=== PATIENT | female | born 1990 | race Caucasian/White ===

== ENCOUNTER 2020-03-25 09:29 | Outpatient (CLI) | payer OTHER, SELFPAY ==
[2020-03-25 09:51] LABS: Hematocrit 33.9 % (37.0-47.0); Mean Corpuscular HGB Conc 32.4 g/dl (32-36); Mean Corpuscular Hemoglobin 30.2 pg (26-34); Mean Corpuscular Volume 93.1 fl (80-100); Mean Platelet Volume 8.8 fl (7.4-10.4); Platelet Count Result 216 k/mm3 (150-375); Red Blood Count 3.64 M/mm3 (4.2-5.4); Red Cell Distribution Width 13.2 % (11.5-14.5); White Blood Count 5.4 K/mm3 (4.5-10.0)
[2020-03-26 07:40] LABS: Rapid Plasma Reagin Non-Reactive (NonReactive)
== END 2020-03-25 09:30 | disposition home or self-care (01) ==
PROVIDERS: Visit Provider Obstetrics & Gynecology
DX: Z01.812 Encounter for preprocedural laboratory examination (principal); Z01.83 Encounter for blood typing
CPT/HCPCS: 36415; 85027; 86592; 86850; 86900; 86901

== ENCOUNTER 2020-03-26 09:56 | Inpatient (IN) | payer OTHER, SELFPAY ==
--- NOTE | 2020-03-25 22:48 | P.HP_ITS ---
H&P: HPI History of Present Illness Date/Time: 03/25/20 22:48 Chief complaint: Repeat Narrative: 29 y/o G P at 39 3/7 weeks gestation here for repeat . Her has been uncomplicated. GBS neg. Good movement. No contractions. Review of Systems Review of Systems: All systems reviewed & are unremarkable except as noted in HPI and below PMFSH Past Medical History Medical History (Updated 03/26/20 @ 11:55 by Joss Dumont MD) History of ectopic Surgical History Surgical History History of delivery History of repair of ACL Family History Family History Grandparent Colon cancer Sibling No problems noted. Daughter No problems noted. Father No problems noted. Social History Social History Smoking status: Never smoker Substance use: never Gender identity (if verbalized by the patient): Female Spiritual care concerns: No Meds Home Medications and Allergies Home Medications Medication Instructions Recorded Confirmed Type PNV cmb#95-ferrous fumarate-FA 1 tablet PO DAILY 03/06/20 03/26/20 History [] Allergies Allergy/AdvReac Type Severity Reaction Status Date / Time No Known Allergies Allergy Verified 03/26/20 10:49 Exam Const: Orientation/consciousness: patient oriented x3 Other: Well- developed, well-nourished female in no acute distress. Neck: Thyroid: thyroid normal Lymphatic: no lymphadenopathy noted (in neck, axilla or inguinal nodes) Resp: Effort & Inspection: normal respiratory effort Auscultation: clear to auscultation bilaterally Cardio: Rate: regular rate Rhythm: regular rhythm Heart sounds: S1 normal heart sound present and S2 normal heart sound present GI: Other: ABD: Soft, nontender, nondistended, gravid. FHR ausculated. : General: Yes no CVA tenderness Other: Cervix is closed, thick. Back/Spine/Pelvis: Back: no CVA tenderness Skin: General skin exam: normal color and no rashes or lesions noted Neuro: General: patient oriented x3 Extrem: Other: Extremities: nontender with no edema Psych: Mental Status: mental status grossly normal Affect: normal affect Assessment and Plan Assessment and plan (1) History of delivery: Code(s): Z98.891 - History of uterine scar from previous surgery Status: Acute Assessment and Plan: IUP at 39 3/7 weeks with prior , desiring repeat. She understands risks of surgery to include risks of anesthesia, risks of pain, infection, bleeding, blood products, thromboembolic phenomena and damage to adjacent structures such as bowel, bladder, ureters, blood vessels and nerves. She understands all these risks and elects to proceed with repeat LTCS.
[2020-03-26] VITALS (77 sets, daily range): BP systolic 68–121; BP diastolic 45–87; PULSE 51–103; RESP 13–18; TEMP 36–36.7; O2SAT 87–100; BMI 29.3
[2020-03-26] MEDS: LACTATED RINGERS 1,000 ML 125 ML IV CONT (10:36)
--- NOTE | 2020-03-26 10:46 | LDADM ---
This patient, Marla Welch, was admitted to Labor/Delivery/Recovery 120 on 03/26/20 at 09:56. Plans for surgery/ and pain management were discussed with patient. Patient/family oriented to hospital policies and general routines including ID bracelet, bed and alarms, visiting hours, pain management, procedures, bathroom and other care routines, personal items, smoking policy, room service/diet and guest tray routines, infant security routines, and visiting hours. Patient/Family are encouraged to report perceived risks to care and to ask questions if they do not understand what they are told or what they should do.
--- NOTE | 2020-03-26 11:41 | WPDANESEPPF ---
Anes - Initial Pre Proc Eval Procedure: Operation Date: 03/26/20 12:00 Proposed Procedures p Repeat Section - Joss Dumont MD 29 y/o G P at 39 weeks gestation here for repeat . Her has been uncomplicated. Date/Time: 03/26/20 11:41 Surgeon: Joss Dumont MD Pre Op Diagnosis: Repeat Patient Data Age: 29 Gender: F Height: 1.73 m Weight: 87.6 kg Last Vital Signs Temp 36.7 C 03/26/20 10:39 Pulse 79 03/26/20 10:33 Resp 16 03/26/20 10:39 BP 121/76 03/26/20 10:33 Allergies Allergy/AdvReac Type Severity Reaction Status Date / Time No Known Allergies Allergy Verified 03/26/20 10:49 Home Medications Medication Instructions Recorded Confirmed Type PNV cmb#95-ferrous fumarate-FA 1 tablet PO DAILY 03/06/20 03/26/20 History [] Patient hx anesthesia problems: post op nausea/vomiting Family hx anesthesia problems: none PMFSH Family History Family History (Updated 03/26/20 @ 11:05 by Wendy Guillaume RN) Grandparent Colon cancer Sibling No problems noted. Daughter No problems noted. Father No problems noted. Social History Social History Smoking status: Never smoker Substance use: never Gender identity (if verbalized by the patient): Female Spiritual care concerns: No Anes - Eval Final PreProcedure Day of Procedure 03/26/20 11:41 Patient weight: overweight Heart: regular rate and rhythm Lungs: clear to auscultation and normal air movement Airway: Mallampati scale class II Neurological: alert and oriented Last oral intake: >/= 8 hours ASA classification: II Emergent: no Anesthetic plan: proceed Anesthesia type and monitoring: regional spinal Informed Consent: The patient's anesthetic plan and its attendant risks and benefits were discussed with the patient/family/POA. Questions were solicited and answers provided to the satisfaction of the patient/family/POA.
--- NOTE | 2020-03-26 11:56 | WPDHPUPDATE1 ---
History and Physical Update Update Date/Time: 03/26/20 11:56 History and Physical has been reviewed, including an updated exam of the patient. There are NO changes in the patient's condition. Risks, benefits, and alternatives have been discussed and questions answered. Patient agrees to proceed with procedure.
[2020-03-26] MEDS: LACTATED RINGERS 1,000 ML 999 ML IV CONT (12:00)
[2020-03-26] MEDS: ceFAZolin 2 GM/D5W 50 ML 2 GM/50 ML BAG IVPB (12:05)
--- NOTE | 2020-03-26 12:58 | P.PCNOB_ITS ---
OB - Delivery Note Procedure Delivery date: 03/26/20 Procedure: Procedures Operation Date: 03/26/20 12:00 Actual Procedures Side Surgeon p Repeat Section Not Applicable Joss Dumont MD Estimated blood loss (mL): 400 Anesthesia type: Spinal Disposition: PACU Complications: None Narrative: The patient was taken to the operating room where she was prepared and draped in the usual sterile fashion in dorsal supine position with a leftward tilt. She received cefazolin preoperatively. Spinal anesthesia was found to be adequate. A Pfannenstiel skin incision was made along the previous scar line and was carried through to the underlying layer of the fascia. The fascia was incised in the midline and the incision was extended laterally. The fascia was dissected free of the underlying rectus muscles. The rectus muscles were in the midline. The peritoneum was identified, tented up and entered sharply. The peritoneal incision was extended superiorly and inferiorly with good visualization of the bladder. The bladder blade was placed. The v esicouterine peritoneum was identified, tented up and entered sharply. The incision was extended laterally and the bladder flap was developed. The bladder blade was replaced. The uterus was then incised sharply in a transverse fashion along the lower uterine segment. The incision was extended laterally. The infant's head was delivered atraumatically to the sterile field, followed by the body. The nose and mouth were bulb suctioned. After a delay, the cord was clamped and cut. The infant was handed off the field. Cord blood was collected. The placenta was removed manually and was passed off the field. The uterus was exteriorized and cleared of all clots and debris. The uterine incision was reapproximated using 0 Monocryl in a running, locked fashion. Excellent hemostasis resulted as did excellent reapproximation of the normal anatomy. Small paratubal cysts were noted bilaterally. The uterus, tubes and ovaries were unremarkable. The uterus was returned the abdomen. The pelvis was irrigated copiously with warmed normal saline. Rigorous hemostasis was assured. The fascial layer was reapproximated using 0 Vicryl in a running fashion. The skin was closed with a running, subcuticular stitch of 4 0 Vicryl. Dermaflex was applied externally. Sponge, lap, needle and instrument counts were correct. The patient was taken to the recovery room in stable condition. The infant went to the nursery in stable condition. I was present and scrubbed the entire procedure. Baby Date of : 03/26/20 Time of : 12:34 Weeks of gestation at delivery: 39 Infant gender: Male Weight (pounds): 10 Weight (ounces): 10 presentation: vertex Placenta delivery description: Manual Removal and Normal Configuration cord vessel description: 3 Vessels score one minute: 9 score five minutes: 9
--- NOTE | 2020-03-26 13:00 | PM.OBDSVD ---
DS: Admitting Diagnosis Admitting Diagnosis Admitting Diagnosis: IUP at 39 3/7 weeks Prior DS: Discharge Diagnosis Discharge Diagnosis (1) History of delivery: Code(s): Z98.891 - History of uterine scar from previous surgery Status: Acute OB - DS: Summary OB Procedures : None OB Procedures Intrapartum: OB Procedures: : None Peripartum Data Procedures: Procedures Operation Date: 03/26/20 12:00 Actual Procedures Side Surgeon p Repeat Section Not Applicable Joss Dumont MD Discharge Plan Discharge Attending physician on discharge: Joss Dumont Consulting providers: Alex Andersen Discharging Clinician: Joss Dumont Patient Disposition: Home, Self-Care Activity: may shower, may drive after 2 weeks and pelvic rest Diet: regular Wound Care Instructions: follow printed instructions and incision open to air Discharge Instructions: Call or return if temperature above 100.4? F, increased abdominal pain, increased vaginal bleeding or any new problems. Education: Mom and Baby Guide Given to: Mother Follow-Up: Call your delivering provider's office for an appointment to be seen. Mom and baby should come to the [facility] for the follow-up appointment. Appointment Date/Time: March 29, 2020 at 9:00 am What to expect at your follow-up visit: Physical Assessment Call [phone] if you are unable to keep your appointment time. BREAST CARE: * Wear a snug supportive bra. * For engorgement discomfort: Breast Feeding: * Apply warm moist washcloths * Express milk as needed to relieve engorgement * Wear loose clothing * For sore nipples: * Identify correct latch-on * Apply warm moist washcloths before and after nursing * Air dry nipples after nursing * May apply Lansinoh cream to nipples EPISIOTOMY/PERINEAL CARE: * Until bleeding stops, use your uriel bottle after urinating * Change your pad frequently throughout the day * You may take sitz baths several times a day (fill your bathtub with warm water and soak for 20 minutes.) Do NOT bathe in the water * No tub baths until seen by your physician - You may shower ACTIVITY: * Rest as much as possible. * Do not exercise or lift anything heavier than your baby (such as laundry or other children.) * Avoid stairs or driving as much as possible. * Do not put anything into the vagina. No douching, tampons, or sexual activity until seen by physician. NOTIFY PHYSICIAN IF YOU HAVE ANY QUESTIONS OR IF ANY OF THE FOLLOWING SYMPTOMS OCCUR: * If your incision becomes red, swollen, or more painful than what you have experienced in the hospital. * If your vaginal bleeding becomes foul smelling. * If your vaginal bleeding becomes more heavy than a period or if your bleeding changes from pink to bright red. However, you may pass an occasional walnut-sized clot once or twice for the first week . * If you experience a sharp, shooting pain in you calves. * If you discover a hard, reddened area on your breast or if you experience flu-like symptoms. DIET: * Eat regular, well-balanced meals. * Drink plenty of fluids daily. If , drink to thirst. Stand Alone Forms: General Discharge Information Follow-up/Referrals: Joss Dumont MD [Physician] - (4 weeks) Discharge Medications: New hydrocodone-acetaminophen [[place]] 5-325 mg tablet 1 - 2 tablet PO Q6H PRN (Reason: pain) Qty: 30 RF: 0 ibuprofen 600 mg tablet 600 mg PO Q6H PRN (Reason: cramps) Qty: 30 RF: 0 ferrous sulfate 325 mg (65 mg iron) tablet 325 mg PO DAILY Qty: 30 RF: 0 Continued PNV cmb#95-ferrous fumarate-FA [] 28 mg iron- 800 mcg Tablet 1 tablet PO DAILY RF: 0 Date of admission: 03/26/20 09:56 Primary Care Provider: PHYSICIAN,ANTHROPOLOGIST PHYSICAL Admitting Provider: Joss Dumont Discharge Date
[2020-03-26] MEDS: OXYTOCIN 30 UNITS/NS 500 ML 30 UNITS/500 ML BAG 125 UNITS IV CONT (14:04)
[2020-03-26] MEDS: ONDANSETRON INJ 4 MG/2 ML VIAL IV PUSH (14:54)
--- NOTE | 2020-03-26 16:23 | PC.NURSE ---
1528-Patient transferred to post room #282 via stretcher. Support person present. Oriented to unit, room, information board, rooming in, admission packet and security measures. Patient verbalizes understanding.
[2020-03-26] MEDS: diphenhydrAMINE HCl INJ 50 MG/ML VIAL 25 MG IV PUSH (16:50)
[2020-03-26] MEDS: KCL 20 MEQ/D5/0.45% SOD CHL 1,000 ML 125 ML IV CONT (18:20)
[2020-03-26] MEDS: KETOROLAC 30 MG/ML VIAL (*BKC) IV PUSH (20:24)
[2020-03-27] MEDS: IBUPROFEN 600 MG TABLET PO ×4 (03:20→23:40)
[2020-03-27 04:25] VITALS: BP 88/54; PULSE 59; RESP 16; TEMP 36; O2SAT 98
[2020-03-27 05:04] LABS: Basophils Percent Auto 0.1 % (0.2-1.2); Hematocrit 28.9 % (37.0-47.0); Hemoglobin 9.4 g/dL (12.0-15.0); Immature Granulocyte Absolute 0.05 K/mm3 (0.00-0.031); Immature Granulocyte Percent A 0.7 % (0-0.5); Lymphocytes Absolute Auto 1.37 K/mm3 (0.9-3.2); Lymphocytes Percent Auto 17.8 % (18.3-44.2); Mean Corpuscular HGB Conc 32.5 g/dl (32-36); Mean Corpuscular Hemoglobin 29.9 pg (26-34); Mean Platelet Volume 9.5 fl (7.4-10.4); Monocytes Absolute Auto 0.5 K/mm3 (0.1-0.6); Neutrophils Absolute Auto 5.8 K/mm3 (1.3-6.7); Neutrophils Percent Auto 75.4 % (45.5-73.1); Platelet Count Result 199 k/mm3 (150-375); Red Blood Count 3.14 M/mm3 (4.2-5.4); Red Cell Distribution Width 13.1 % (11.5-14.5); White Blood Count 7.7 K/mm3 (4.5-10.0)
[2020-03-27 07:50] VITALS: BP 95/57; PULSE 62; RESP 18; TEMP 37.1; O2SAT 97
--- NOTE | 2020-03-27 08:20 | PC.NURSE ---
Consult with pt., mother states is latching for all feedings. She reports tenderness with feedings and states infant has a tight tongue. Frenulum is noted close to tip of tongue and tongue does heart in at tip. Report to ICP. Mother reports difficulties with latching first child, she pumped and bottle fed for several months.
[2020-03-27] MEDS: MULTIVIT/MIN/PREN/FOL AC/IRON TABLET 1 TAB PO (08:56)
[2020-03-27] MEDS: DOCUSATE SODIUM 100 MG CAPSULE PO ×2 (08:56→16:52)
[2020-03-27] MEDS: POLYSACCHARIDE IRON COMPLEX 150 MG CAPSULE PO ×2 (08:56→16:52)
--- NOTE | 2020-03-27 10:29 | WPDANLDPN2 ---
Anes-Prog Note L&D Date/Time: 03/27/20 10:29 Comfortable throughout: section Neuraxial method: spinal Epidural/Spinal procedure site: clean & non-tender Neuro status: Neuro function grossly intact. Cardiovascular status: normal Respiratory status: normal Airway patency: baseline Mental status: baseline Post-Op hydration status: normal Vital Signs: Last Vital Signs Temp 37.1 C 03/27/20 07:50 Pulse 62 03/27/20 07:50 Resp 18 03/27/20 07:50 BP 95/57 L 03/27/20 07:50 Pulse Ox 97 03/27/20 07:50 I/O: Intake & Output 03/26/20 03/27/20 03/27/20 23:59 07:59 15:59 Intake Total 1100 200 240 Output Total 825 400 Balance 275 -200 240 Post-procedural complaints: nausea moderate, treatment effective and pruritis mild, no treatment Patient feedback: Patient satisfied with anesthetic care.
--- NOTE | 2020-03-27 10:29 | WPDANLDNPN2 ---
Anes-Prog Note L&D-Neuraxial Date/Time: 03/27/20 10:29 Neuraxial medications: intrathecal PF morphine Opiod-related complaints: pruritis mild, no treatment Patient feedback: Patient satisfied with post-operative pain management.
--- NOTE | 2020-03-27 12:30 | PC.NURSE ---
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 Reviewed infant feeding cues, frequencies, duration of feedings, feeding elimination flow sheet, and signs of adequate intake. Demonstrated stimulation techniques to wake infant for feeding. Assisted with to breast. Reviewed positioning/alignment in cross cradle, holding breast in U hold and guided asymmetrical latch on. Discussed rational for each. Infant made several attempts before he was able to latch correctly. does not drop tongue to allow easy deep latch and is pushing nipple out during feeding. Once one infant nursed eagerly with steady draws and frequent swallowing followed with long pausing. During pausing would again push nipple out, he would begin to suckle with a shallow latch. Advised to break latch and not allow infant to suck on just nipple. Reviewed signs of a correct latch, effective nursing and suck swallow ratio. Infant was able to maintain latch without discomfort to mother. is sleepy at breast with long pausing and sleeping. Nipple care reviewed. Suggested to stimulate during entire feeding to keep awake and feeding effectively and to assist with maintaining deep latch. Demonstrated how to adjust latch more deeply while feeding. Mother states she will continue to supplement after all feedings until her milk is in. Suggested mother initiate pumping. Instructed mother to call out for RN assistance if she is unable to latch for feeding or she has discomfort with nursing. Instructed feeding should be initiated three hours from start of last feeding or if feeding cues are noted before. Mother voiced understanding of information shared.
[2020-03-27 13:15] VITALS: BP 96/58; PULSE 72; RESP 18; TEMP 36.6; O2SAT 97
--- NOTE | 2020-03-27 17:50 | PM.OBPNVD ---
OB - PN: Subj Subjective Date/time seen: 03/27/20 17:50 Narrative: Pain OK. Tolerating diet. Would like circumcision for son. OB - PN: Obj Data Labs CBC & Chem 7: 03/27/20 04:28 Labs: Laboratory Results - last 24 hr 03/27/20 04:28 WBC 7.7 RBC 3.14 L Hgb 9.4 L Hct 28.9 L MCV 92.0 MCH 29.9 MCHC 32.5 RDW 13.1 Plt Count 199 MPV 9.5 Immature Gran % (Auto) 0.7 H Neut % (Auto) 75.4 H Lymph % (Auto) 17.8 L [place] % (Auto) 6.0 Eos % (Auto) 0.0 Baso % (Auto) 0.1 L Lymph # (Auto) 1.37 [place] # (Auto) 0.5 Eos # (Auto) 0.0 Baso # (Auto) 0.0 Abs Immat Gran (auto) 0.05 H Absolute Neuts (auto) 5.8 Absolute Nucleated RBC 0.0 Nucleated RBC % 0.0 OB - PN A/P Plan Comments: A: POD#1, doing well. P: Routine care. Reviewed circumcision. Exam Narrative: Exam Narrative: AVSS I/O OK ABD soft, nontender, fundus firm. Incision c/d/i. EXT nontender
[2020-03-27 20:05] VITALS: BP 95/53; PULSE 70; RESP 18; TEMP 36.6; O2SAT 97
--- NOTE | 2020-03-28 07:06 | PM.OBPNVD ---
OB - PN: Subj Subjective Date/time seen: 03/28/20 07:06 Patient comments: no complaints and pain well controlled baby status: doing well and nursing well OB - PN: Obj Data Labs CBC & Chem 7: 03/27/20 04:28 OB - PN A/P Plan day: 2 Plan: routine care, discharge home and follow up 6 weeks (4 weeks) Time Spent With Patient Time: Total time spent is greater than 50% in coordination of care (as documented) at patient's floor/unit and/or counseling patient: Time with patient: less than 15 minutes Review of Systems Review of Systems: All systems reviewed & are unremarkable except as noted in HPI and below Exam Const: General: no acute distress Eyes: General: appearance normal, both eyes and all related structures Neck: Neck: supple and no JVD Thyroid: thyroid normal Resp: Effort & Inspection: normal respiratory effort Auscultation: clear to auscultation bilaterally Cardio: Rate: regular rate Rhythm: regular rhythm GI: Inspection: normal to inspection and incision (cdi) Percussion: Yes normal to percussion Auscultation: normal bowel sounds : General: Yes bladder normal to palpation External Female Exam: normal external appearance Speculum Exam - Vagina: normal vaginal discharge and No vaginal bleeding Speculum Exam - Cervix: nontender Bimanual exam- vagina & uterus: bladder normal to palpation and No Cervical tenderness present OB/external & speculum: No vaginal bleeding Skin: General skin exam: no rashes or lesions noted Extrem: General: normal to inspection and no edema Psych: Mental Status: mental status grossly normal Affect: normal affect
[2020-03-28 07:50] VITALS: BP 112/71; PULSE 71; RESP 18; TEMP 37.2
[2020-03-28] MEDS: DOCUSATE SODIUM 100 MG CAPSULE PO (08:49)
[2020-03-28] MEDS: POLYSACCHARIDE IRON COMPLEX 150 MG CAPSULE PO (08:49)
[2020-03-28] MEDS: MULTIVIT/MIN/PREN/FOL AC/IRON TABLET 1 TAB PO (08:49)
[2020-03-28] MEDS: IBUPROFEN 600 MG TABLET PO (08:50)
--- NOTE | 2020-03-28 09:50 | PC.NURSE ---
Consult with pt., mother reports she continues to put to breast each feeding and will supplement as she began due to low blood glucose. Discussed infant is now stable and does not require supplement. Mother states she will continue until her milk is in. Parents are pleased will eagerly bottle fed each feeding as they plan to do both. Mother is pumping after every other feeding to stimulate milk supply. Reviewed instructions given on breast pump care and usage, pumping schedule, nipple care, and collection and storage of breast milk. Encouraged [id number], breast massage and manual expression to stimulate supply. Mother denies discomfort with flange size, placement and draw. Patient verbalizes and demonstrates understanding of instructions. Mother is able to independently latch infant with appropriate positioning/alignment. She denies any nipple discomfort, is feeding as required and waking infant to feed if needed. Infant has had at least 8 effective feedings in the past 24 hours, and is currently meeting outcomes for weight, output, jaundice and feeding frequencies. Mother states she feels confident to continue current feeding plan at home. Reviewed transition to breast milk, signs of adequate intake, and engorgement/relief. Instructed to call ICP if intake/output less than required. Reviewed regular medications mother is taking. Information provided per [facility]. Reviewed community resources on the [facility] website and in the Mom/Baby guide. Information on outpatient services provided. Mother has no further questions at this time.
[2020-03-29 09:36] VITALS: BP 99/47; PULSE 61; RESP 16; TEMP 36.8; O2SAT 98
== END 2020-03-28 11:36 | disposition home or self-care (01) | DRG 788 ==
LOC: ANHLDR 13:02 → ANHOB2 03-28 10:36 → ANHLDR 03-31 10:01 → ANHOB2 03-31 10:01
PROVIDERS: Admitting Provider Obstetrics & Gynecology; Visit Provider Obstetrics & Gynecology
PROC: 10D00Z1 Extraction of Products of Conception, Low, Open Approach (ICD-10-PCS; CPT 59514; principal; 2020-03-26 12:00)
DX: O34.211 Maternal care for low transverse scar from previous cesarean delivery (principal); Z3A.39 39 weeks gestation of pregnancy; Z37.0 Single live birth
CPT/HCPCS: 36415; 85025; A9270; J0131; J0690; J1100; J1200; J1885; J2274; J2370; J2405; J2590; J3480; J7120

== ENCOUNTER 2024-09-05 17:06 | Emergency (ER) | payer OTHER, SELFPAY ==
--- NOTE | ~2024-09-05 | US_ITS ---
EXAMINATION: US pelvic complete w TV DATE: 09/05/2024 19:56 INDICATION: VB, miscarriage 2 weeks ago. Eval retained POC TECHNIQUE: Multiple transabdominal and endovaginal sonographic images of the pelvis were obtained. COMPARISON: None. FINDINGS: Uterus: 8.6 x 4.5 x 4.9 cm. Retroverted. Endometrial complex measures 3 mm at the uterine fundus and 6 mm in the lower uterine segment which appears to be distended by heterogeneous echogenic material. There is a 12 mm heterogeneous area in the lower uterine segment that is closely associated with the endometrium. Right Ovary: 2.9 x 1.2 x 1.7 cm. Vascular flow is present. No adnexal mass Left Ovary: 3.8 x 2.6 x 1.5 cm. Vascular flow is present. No adnexal mass There is small volume free fluid in the pelvis. IMPRESSION: 12 mm heterogeneous area in the lower uterine segment, closely associated with the endometrium and vogt spicious for retained products of conception. Additional considerations could include scar or submucosal fibroid, although these are considered less likely. Reviewed, dictated and finalized at location K. OR HUMAN RESOURCES REPRESENTATIVE IMPRESSION: 12 mm heterogeneous area in the lower uterine segment, closely associated with the endometrium and suspicious for retained products of conception. Additional considerations could include scar or submucosal fibroid, although the se are considered less likely.
[2024-09-05 17:56] VITALS: BP 113/55; PULSE 50; RESP 16; TEMP 36.2; O2SAT 100
[2024-09-05 18:05] VITALS: BP 119/67; PULSE 96; RESP 17; O2SAT 100
--- OUTSIDE RECORDS SUMMARY | 2024-09-05 18:41 | XMS_ITS | Encounter Summary ---
Author Organization [facility] Address [facility] [facility] [place] [address] [place] [address] Care Team Providers Care Cardiology Consultants Name Role Phone Sherry Tay PA-C Primary Care Provider + [phone] Joss Dumont MD Unavailable [phone] Chiara Salazar MONITOR AND STORAGE BIN TENDER Unavailable [phone] Encounter Details Date Type Department Care Team (Late st Contact Info) Description 03/14/2002 Abstract [facility] Conversion , Generic Conversion, Social History Tobacco Use Types Packs/Day Years Used Date Smoking Tobacco: Never Assessed Comments Unknown Sex and Gender Information Value Date Recorded Sex Assigned at Uncertain 08/29/2024 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 Legal Sex Female 7:07 PM CDT Gender Identity Not on file Sexual Orientation Not on file documented as of this encounter Plan of Treatment Not on file documented as of this encounter Visit Diagnoses Not on filedocumented in this encounter Care Teams Cardiology Consultants Relationship Specialty Start Date End Date Sherry Tay PA-C [address] [place] [address] PCP - General PHYSICIAN STRETCH PRESS OPERATOR 07/10/18 Joss Dumont MD [address] [place] [address] OBGYN 02/09/22 Chiara Salazar, MONITOR AND STORAGE BIN TENDER [address] [place] [address] Nurse Practitioner OTOLARYNGOLOGY 02/27/22 documented as of this encounter
--- OUTSIDE RECORDS SUMMARY | 2024-09-05 18:41 | XMS_ITS | Clinical Summary ---
Author Organization [facility] Address [address] [place] [address] [place] [address] Care Team Providers Care Corking Machine Operator Name Role Phone Sherry Tay PA-C Primary Care Provider [phone] Joss Dumont MD Unavailable [phone] Chiara Salazar NP Unavailable [phone] Allergies No known active allergies Medications multi vitamin/mineral s (THERA-M ENHANCED) tablet Take 1 tablet by mouth daily. Active fluticasone propionate (FLONASE) 50 MCG/ACT nasal spray 2 sprays by Each Nostril route daily as needed for Allergies. 4 Active buPROPion XL (WELLBUTRIN XL) 150 MG 24 hr tabletIndicatio ns:Anxiety,Mild episode of recurrent major depressive disorder (CMS/HCC) TAKE ONE TABLET BY MOUTH DAILY 30 tablet 1 4 Active venlafaxine XR (EFFEXOR-XR) 75 MG 24 hr capsuleIndicati ons:Anxiety,Mil d episode of recurrent major depressive disorder (CMS/HCC) Take 1 capsule (75 mg total) by mouth daily for 30 days. Then decrease to 37.5mg 30 capsule 4 08/19/19 25 venlafaxine XR (EFFEXOR-XR) 37.5 MG 24 hr capsuleIndicati ons:Anxiety,Mil d episode of recurrent major depressive disorder (CMS/HCC) Take 1 capsule (37.5 mg total) by mouth daily for 30 days. Then discontinue. 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 [address] [place] [address] Joss Dumont MD Discharge Disposition: Home or Self Care (Routine Discharge) 08/29/2024 Orders Only [facility] [address] [place] [address] Joss Dumont MD 08/29/2024 Travel 07/19/2024 [employer] Message [facility] [address] [place] [id number] Sherry Tay PA-C Anxiety meds while from Last 3 Months Immunizations Name Administration Dates Next Due Dtap (Generic) 11/30/1993, 0,1988, 989,1988 Fluzone 6 Months+ Quad (0.5 mL Prefilled Syringe) 05/19/2020,06/28/2019 HPV 1988 Hepatitis B 11/06/1998,06/08/1998,05/08/1998 Hib Vaccine, Prp-Omp 05/01/1990 Influenza (Generic) 08/24/2023(Deferred: Patient Refused) MMR (Generic) 11/30/1993,11/04/1989 Opv 11/30/1993, 0,1988, 989 Td 02/21/2003 Tdap (Boostrix) 02/21/2020 Tdap (Generic) 07/11/2018 Tdap (Historical Only-select from magnify glass) 07/11/2018 Family History Medical History Relation Comments Alcohol Abuse Brother Asthma Brother Depression Brother Mental Health Brother PTSD Brother bipolar disorder Brother Hyperlipidemia Father Esophageal cancer Maternal Grandfather No Known Problems Maternal Grandmother Stomach cancer Maternal cousin Hypertension Mother Colon Cancer Paternal Grandfather Diabetes Paternal Grandfather No Known Problems Paternal Grandmother No Known Problems Son 1 No Known Problems Son 2 Relation Status Comments Brother Alive Father Alive Maternal Grandfather Maternal Grandmother Alive Maternal cousin Mother Alive Paternal Grandfather Paternal Grandmother Son 1 Alive Son 2 Alive Social History Tobacco Use Types Packs/Day Years Used Date Smoking Tobacco: Never Smokeless Tobacco: Never Tobacco Cessation:Counseling Given: No Alcohol Use Standard Drinks/Week Comments Yes 13.3 (1 standard drink = 0.6 oz pure alcohol) PHQ-2 Answer Date Recorded Patient Health Questionnaire-2 Score 0 01/31/2024 Comments No Sex and Gender Information Value Date Recorded Sex Assigned at Uncertain 08/29/2024 7:47 AM FARM INSTRUCTOR Legal Sex Female 7:07 PM CDT Gender Identity Not on file Sexual Orientation Not on file Last Filed Vital Signs Vital Sign Reading Time Taken Comments Blood Pressure 95/68 03/08/2024 9:12 AM CDT Pulse 59 03/08/2024 9:12 AM CDT Temperature 36.7 ??C (98 ??F) 03/08/2024 9:12 AM CDT Respiratory Rate 18 03/08/2024 9:12 AM CDT Oxygen Saturation 99% 03/08/2024 9:12 AM CDT Inhaled Oxygen Concentration - - Weight 82.6 kg (182 lb 3.2 oz) 03/08/2024 9:12 A M CDT Height 172.7 cm (5' 8 ) 03/08/2024 9:12 AM CDT Body Mass Index 27.7 03/08/2024 9:12 AM CDT Plan of Treatment Health Maintenance Due Date Last Done Comments Hepatitis C 2006 COVID-19 Vaccine ( season) 2024 Influenza Adult (#1) 2024 05/19/2020, 06/28/20 19 PHQ-2 (Physician Ak Chin) 08/08/2024 01/31/2024 Annual Physical 01/30/2025 01/31/2024, 02/03/2023 PHQ-2 (Physician Ak Chin) 01/30/2025 01/31/2024 DTaP, Tdap and Td Vaccines (9 - Td or Tdap) 02/20/2030 02/21/2020, 07/11/2018, 07/11/2018, Additional history exists HPV Vaccines Aged Out 1988 No longer eligi ble based on patient's age to complete this topic Hepatitis B Vaccines Completed 11/06/1998, 06/08/1998, 05/08/1998 Meningococcal B Vaccine Aged Out No l onger eligible based on patient's age to complete this topic Meningococcal Vaccine Aged Out No misty flora eligible based on patient's age to complete this topic Pneumococcal Vaccine: Pediatrics (0 to 5 Years) and At-Risk Patients (6 to 64 Years) Aged Out No longer eligible based on patient's age to complete this topic RSV Immunizations Under 20 Months Aged Out No longer eligible based on patient's age to complete this topic Procedures Procedure Name Priority Date/Time Associated Diagnosis Comments HCG QUANT (SERUM)-CHORIONIC GONADOTROPIN Routine 08/29/2024 8:06 AM FARM INSTRUCTOR Incomplete ([facility]) from Last 3 Months Results * HCG QUANT (SERUM)-CHORIONIC GONADOTROPIN (08/29/2024 8:06 AM FARM INSTRUCTOR) HCG QUANTITATIVE 2,748 MIU/ML 08/29/19 25 9:18 AM FARM INSTRUCTOR [facility] Comment: WEEKS OF ? REFERENCE RANGES NON- FEMALE ?0-6 ? 0.2 - 1 ? 5 - 50 ? 1 - 2 ? 50 - 500 ? 2 - 3 ? 100 - 5000 ? 3 - 4 ? 500 - 10,000 ? 4 - 5 ? 1000 - 50,000 ? 5 - 6 ? 10,000 - 100,000 ? 6 - 8 ? 15,000 - 200,000 ? 2 - 3 MONTHS ?10,000 - 100,000 08/29/2024 8:06 AM FARM INSTRUCTOR Joss Dumont MD LABORATORY Final Result [facility] () [facility] [address] [place] [address], [place] [phone] from Last 3 Months Insurance [employer] Care Teams Corking Machine Operator Relationship Specialty Start Date End Date Sherry Tay PA-C [address] [facility] [address] [place] [address] PCP - General PHYSICIAN TICKET COUNTER 07/10/18 Joss Dumont MD [address] [facility] [address] [place] [address] OBGYN 02/09/22 Chiara Salazar, BRENDEN [address] [place] [address] [place] [address] Nurse Practitioner OTOLARYNGOLOGY 02/27/22
--- OUTSIDE RECORDS SUMMARY | 2024-09-05 18:41 | XMS_ITS | Encounter Summary ---
Author Organization [facility] Address [address] [place] [address]. [place] [address] [place] [address] Care Team Providers Care Allocations Clerk Name Role Phone Sherry Tay PA-C Primary Care Provider Joss Dumont MD Unavailable [phone] Chiara Salazar NP Unavailable [phone] Encounter Details Date Type Department Care Team (Late st Contact Info) Description 09/01/2023 [employer] Message [facility] [address] [place] [address] Sherry Tay PA-C [address] [place] [address] Ears Social History Tobacco Use Types Packs/Day Years Used Date Smoking Tobacco: Never Smokeless Tobacco: Never Alcohol Use Standard Drinks/Week Comments Yes 20 (1 standard drink = 0.6 oz pu re alcohol) PHQ-2 Answer Date Recorded Patient Health Questionnaire-2 Score 0 05/23/2023 Comments No Sex and Gender Information Value Date Recorded Sex Assigned at Uncertain 08/29/2024 7:47 AM SENIOR BUSINESS MANAGER Legal Sex Female 7:07 PM CDT Gender Identity Not on file Sexual Orientation Not on file documented as of this encounter Plan of Treatment Not on file documented as of this encounter Visit Diagnoses Not on filedocumented in this encounter Additional Health Concerns Assessment Noted Time PHQ-9 Depression Total Score: 0 08/13/19 22 7:46 AM SENIOR BUSINESS MANAGER documented as of this encounter Care Teams Allocations Clerk Relationship Specialty Start Date End Date Sherry Tay PA-C [address] [place] [address] PCP - General PHYSICIAN PRINT DEVELOPER AUTOMATIC 07/10/18 Joss Dumont MD [address] [facility] [address] [place], [place] [address] OBGYN 02/09/22 Chiara Salazar, SUPERVISOR PLATING AND POINT ASSEMBLY [address] [place] [address] Nurse Practitioner OTOLARYNGOLOGY 02/27/22 documented as of this encounter
[2024-09-05 18:56] LABS: BEDSIDEPREGUCG Positive (Negative)
[2024-09-05 18:57] LABS: Basophils Percent Auto 0.5 % (0.2-1.2); Eosinophils Absolute Auto 0.2 K/mm3 (0-0.3); Hematocrit 37.1 % (37.0-47.0); Hemoglobin 12.1 g/dL (12.0-15.0); Immature Granulocyte Absolute 0.01 K/mm3 (0.00-0.031); Immature Granulocyte Percent A 0.2 % (0-0.5); Lymphocytes Absolute Auto 1.12 K/mm3 (0.9-3.2); Lymphocytes Percent Auto 19.7 % (18.3-44.2); Mean Corpuscular HGB Conc 32.6 g/dl (32-36); Mean Corpuscular Hemoglobin 30.9 pg (26-34); Mean Corpuscular Volume 94.9 fl (80-100); Mean Platelet Volume 8.4 fl (7.4-10.4); Monocytes Absolute Auto 0.4 K/mm3 (0.1-0.6); Monocytes Percent Auto 6.5 % (2.6-8.5); Neutrophils Percent Auto 70.1 % (45.5-73.1); Platelet Count Result 244 k/mm3 (150-375); Red Blood Count 3.91 M/mm3 (4.2-5.4); Red Cell Distribution Width 11.9 % (11.5-14.5); White Blood Count 5.7 K/mm3 (4.5-10.0)
[2024-09-05 19:04] LABS: Add Urine Microscopic? YES; Appearance Urine Clear (Clear); Bacteria Urine None Seen /hpf; Bilirubin Urine Negative (Negative); Blood Urine 3+ (Negative); Color Urine Yellow (Yellow); Glucose Urine UA Negative (Negative); Ketones Urine Negative (Negative); Leukocyte Esterase Ur Negative LEU/UL (Negative); Nitrate Urine Negative (Negative); Non Pathogenic Casts 0-2; Protein Urine Negative (Negative); RBC Urine >100 /hpf (0-2); Specific Grav Ur 1.009 (1.001-1.035); Squamous Epithelial Cell Urine None Seen /hpf (Few); WBC Urine 0-5 /hpf (0-3); pH Urine 5.5 (5.0-9.0)
[2024-09-05 19:09] LABS: Alanine Aminotransferase 21 U/L (6-35); Albumin Level 4.1 g/dL (3.5-5.1); Alkaline Phosphatase 46 U/L (38-126); Anion Gap 10 mmol/L (4-12); Aspartate Amino Transferase 22 U/L (14-36); Bilirubin,Total 0.3 mg/dL (0.2-1.3); Blood Urea Nitrogen 12 mg/dL (7-17); Calcium 9.2 mg/dL (8.4-10.2); Carbon Dioxide 27 mmol/L (22-30); Chloride 103 mmol/L (98-107); Estimated CRCL calculation 95 ml/min; Estimated Glomerular Filt Rate > 60; Glucose 90 mg/dL (65-110); Sodium 140 mmol/L (137-145)
[2024-09-05 19:24] LABS: Beta HCG Quantitative 646.34 mIU/ML
--- NOTE | 2024-09-05 20:51 | ED_ITS ---
HPI - General Adult General Chief complaint: Vaginal Bleeding Stated complaint: miscarriage 2 weeks ago, passing clots Time Seen by Provider: 09/05/24 18:30 History of Present Illness HPI narrative: This is a 34-year-old female presenting 2 weeks after miscarriage with vaginal bleeding. She was diagnosed with miscarriage by her OBGYN 2 weeks ago. She had had some bleeding that time and then had essentially resolved. Today she had passage of a large baseball sized clot. Since then the bleeding started to slow. She does not have any fevers chills nausea vomiting diarrhea or abdominal pain Related Data Home Medications ?Medication ?Instructions ?Recorded ?Confirmed ?Last Taken ?Type vit no.95-ferrous 1 tablet PO DAILY 03/06/20 03/26/20 03/26/20 07:30 History fumarate 28 mg-folic acid 800 mcg tablet () Allergies Allergy/AdvReac Type Severity Reaction Status Date / Time No Known Allergies Allergy Verified 03/26/20 10:49 PMFSH Past Medical History Medical History History of ectopic Surgical History Surgical History History of repair of ACL History of delivery Family History Family History Grandparent Colon cancer Sibling No problems noted. Daughter No problems noted. Father No problems noted. Social History Social History Smoking status: Never smoker Substance use: never Gender identity (if verbalized by the patient): Female Spiritual care concerns: No Exam 2 Narrative: APPEARANCE: No apparent distress. Head: atraumatic. EYES: EOMI, NOSE: Atraumatic NECK: Trachea midline RESPIRATORY: No increased rate of breathing CARDIOVASCULAR: RRR, ABDOMINAL: Non-distended soft nontender Pelvic exam showed a closed cervical os with minimal amount of blood in the pelvic vault MUSCULOSKELETAl: No obvious deformities NEURO: Alert. Moving 4/4 extremities SKIN:: Warm, dry. Normal color PSYCHIATRIC: Normal affect Course Vital Signs Vital signs: Vital Signs Temperature 97.2 F L 09/05/24 17:56 Pulse Rate 50 L 09/05/24 17:56 Respiratory Rate 16 09/05/24 17:56 Blood Pressure 113/55 L 09/05/24 17:56 Pulse Oximetry 100 09/05/24 17:56 Temperature 97.2 F L 09/05/24 17:56 Pulse Rate 96 09/05/24 18:05 Respiratory Rate 17 09/05/24 18:05 Blood Pressure 119/67 09/05/24 18:05 Pulse Oximetry 100 09/05/24 18:05 Medical Decision Making [facility] Narrative Medical decision making narrative: -Course: 34-year-old female presenting 2 weeks after miscarriage with increased vaginal bleeding. Bleeding has slowed down by time she got to the ED. Pelvic exam showed a closed cervical os with some minimal red blood in the vaginal vault. Ultrasound showed a 12 mm endometrial strip which could be consistent with retained products of conception. Case was discussed with tolerated the and she will follow up with [facility] over the next several days. Patient was discharged with return precautions for bleeding or infection. -DDX includes but is not limited to: Retained POC, septic , Vital Signs Vital Signs: Vital Signs Temperature 97.2 F L 09/05/24 17:56 Pulse Rate 50 L 09/05/24 17:56 Respiratory Rate 16 09/05/24 17:56 Blood Pressure 113/55 L 09/05/24 17:56 Pulse Oximetry 100 09/05/24 17:56 Temperature 97.2 F L 09/05/24 17:56 Pulse Rate 96 09/05/24 18:05 Respiratory Rate 17 09/05/24 18:05 Blood Pressure 119/67 09/05/24 18:05 Pulse Oximetry 100 09/05/24 18:05 Lab Data 09/05/24 18:48 09/05/24 18:48 Labs: Lab Results 09/05/24 09/05/24 09/05/24 Range/Units 18:48 18:50 18:54 WBC 5.7 (4.5-10.0) K/mm3 RBC 3.91 L (4.2-5.4) M/mm3 Hgb 12.1 (12.0-15.0) g/dL Hct 37.1 (37.0-47.0) % MCV 94.9 (80-100) fl MCH 30.9 (26-34) pg MCHC 32.6 (32-36) g/dl RDW 11.9 (11.5-14.5) % Plt Count 244 (150-375) k/mm3 MPV 8.4 (7.4-10.4) fl Immature Gran % (Auto) 0.2 (0-0.5) % Neut % (Auto) 70.1 (45.5-73.1) % Lymph % (Auto) 19.7 (18.3-44.2) % [place] % (Auto) 6.5 (2.6-8.5) % Eos % (Auto) 3.0 (0-4.4) % Baso % (Auto) 0.5 (0.2-1.2) % Lymph # (Auto) 1.12 (0.9-3.2) K/mm3 [place] # (Auto) 0.4 (0.1-0.6) K/mm3 Eos # (Auto) 0.2 (0-0.3) K/mm3 Baso # (Auto) 0.0 (0.0-0.1) K/mm3 Abs Immat Gran (auto) 0.01 (0.00-0.031) K/mm3 Absolute Neuts (auto) 4.0 (1.3-6.7) K/mm3 Absolute Nucleated RBC 0.000 (0.0-0.012) K/mm3 Nucleated RBC % 0.0 (0.0-0.2) % Sodium 140 (137-145) mmol/L Potassium 4.0 (3.4-5.0) mmol/L Chloride 103 (98-107) mmol/L Carbon Dioxide 27 (22-30) mmol/L Anion Gap 10 (4-12) mmol/L BUN 12 (7-17) mg/dL Creatinine 0.71 (0.7-1.0) mg/dL Estim Creat Clear Calc 95 ml/min Estimated GFR > 60 (59 - ) Glucose 90 (65-110) mg/dL Calcium 9.2 (8.4-10.2) mg/dL Total Bilirubin 0.3 (0.2-1.3) mg/dL AST 22 (14-36) U/L ALT 21 (6-35) U/L Alkaline Phosphatase 46 (38-126) U/L Total Protein 7.0 (6.3-8.2) g/dL Albumin 4.1 (3.5-5.1) g/dL Beta HCG, Quant 646.34 mIU/ML Urine Color Yellow (Yellow) Urine Appearance Clear (Clear) Urine pH 5.5 (5.0-9.0) Ur Specific [place] 1.009 (1.001-1.035) Urine Protein Negative (Negative) mg/dL Urine Glucose (UA) Negative (Negative) mg/dL Urine Ketones Negative (Negative) mg/dL Ur Blood (Man) 3+ H (Negative) Urine Nitrate Negative (Negative) Urine Bilirubin Negative (Negative) Urine Urobilinogen 1.0 (<2.0) mg/dL Leukocyte Esterase Rfl Negative (Negative) [place]/UL Urine RBC >100 H (0-2) /hpf Urine WBC 0-5 (0-3) /hpf Ur Squamous Epith Cells None seen (Few) /hpf Urine Bacteria None seen /hpf Urine Casts 0-2 POC Urine HCG, Qual Positive (Negative) Discharge Plan Discharge Clinical Impression: Miscarriage Patient Disposition: Home, Self-Care Condition: Stable Instructions: Antibiotic Form, Miscarriage (ED) Additional Instructions: Please call your OBGYN clinic tomorrow morning to arrange follow-up. Return to the ED if you bleed through more than 1 pad per hour for 2 hours. Please return if you develop fevers abdominal pain or feel like her condition is getting worse. Patient Language: Lithuanian Prescriptions: New acetaminophen 500 mg tablet 1,000 mg PO TID PRN (Reason: ismael) 7 Days Qty: 42 0RF ibuprofen 800 mg tablet 800 mg PO TID PRN (Reason: pain) 7 Days Qty: 21 0RF No Action PNV cmb#95-ferrous fumarate-FA [] 28 mg iron- 800 mcg Tablet 1 tablet PO DAILY hydrocodone-acetaminophen [Vilonia] 5-325 mg tablet 1 - 2 tablet PO Q6H PRN (Reason: pain) Qty: 30 0RF ibuprofen 600 mg tablet 600 mg PO Q6H PRN (Reason: cramps) Qty: 30 0RF ferrous sulfate 325 mg (65 mg iron) tablet 325 mg PO DAILY Qty: 30 0RF Follow-up/Referrals: Joss Dumont MD [Primary Care Provider] - 1 Day (Retained poc)
[2024-09-05 21:15] VITALS: BP 110/64; PULSE 72; RESP 16; O2SAT 100
== END 2024-09-05 21:16 | disposition home or self-care (01) ==
PROVIDERS: Emergency Provider Emergency Medicine; PCP Obstetrics & Gynecology
DX: O03.9 Complete or unspecified spontaneous abortion without complication (principal)
CPT/HCPCS: 36415; 76830; 76856; 80053; 81001; 81025; 84702; 85025; 99284